=== PATIENT | male | born 1980 | race Caucasian/White ===

== ENCOUNTER 2020-02-02 07:23 | Day surgery (SDC) | payer OTHER ==
--- NOTE | 2020-02-02 07:50 | EDM.PDOC ---
ED HPI GENERAL MEDICAL PROBLEM - General Chief Complaint: Abdominal Pain Stated Complaint: PRESSURE IN CHEST AND STOMACH Time Seen by Provider: 02/02/20 07:43 Source of Information: Reports: Patient History Limitations: Reports: No Limitations - History of Present Illness INITIAL COMMENTS - FREE TEXT/NARRATIVE: This 39-year-old gentleman presents to the emergency room with a chief complaint of epigastric and chest pain after vomiting 10 times yesterday. Patient denies shortness of breath but states that he has epigastric pain radiating through his to his chest. Patient denies any upper GI bleeding any melanotic stools. Patient states he drinks alcohol 3 times a week. And smokes cannabis 3 times a week. Denies a history of heart disease, hypertension or family history of heart disease Duration: Day(s): (2), Getting Worse Location: Reports: Chest, Abdomen, Generalized Quality: Reports: Ache, Burning Severity: Moderate Associated Symptoms: Reports: Chest Pain, Nausea/Vomiting chest pressure Pain Score (Numeric/FACES): 8 - Related Data Allergies Allergy/AdvReac Type Severity Reaction Status Date / Time amoxicillin [Amoxicillin] Allergy Nausea Verified 02/02/20 07:28 Home Meds: Home Meds . [No Known Home Meds] 02/02/20 [History] Past Medical History - Past Health History Medical/Surgical History: Denies Medical/Surgical History - Infectious Disease History Infectious Disease History: Reports: None Social & Family History - Family History Family Medical History: Noncontributory - Tobacco Use Smoking Status *Q: Never Smoker - Recreational Drug Use Recreational Drug Use: Yes Recreational Drug Type: Reports: Marijuana/Hashish Recreational Drug Use Frequency: Weekly ED ROS GENERAL - Review of Systems Review Of Systems: See Below Constitutional: Reports: No Symptoms HEENT: Reports: No Symptoms Respiratory: Reports: No Symptoms Cardiovascular: Reports: Chest Pain Endocrine: Reports: No Symptoms GI/Abdominal: Reports: Abdominal Pain, Nausea, Vomiting : Reports: No Symptoms Musculoskeletal: Reports: No Symptoms Skin: Reports: No Symptoms Neurological: Reports: No Symptoms Psychiatric: Reports: No Symptoms Hematologic/Lymphatic: Reports: No Symptoms Immunologic: Reports: No Symptoms ED EXAM, GI/ABD - Physical Exam Exam: See Below Exam Limited By: No Limitations General Appearance: Alert, Anxious, Moderate Distress Eyes: Bilateral: Normal Appearance Ears: Normal External Exam, Normal Canal, Hearing Grossly Normal, Normal TMs Nose: Normal Inspection, Normal Mucosa, No Blood Throat/Mouth: Normal Inspection, Normal Lips, Normal Teeth, Normal Gums Head: Atraumatic, Normocephalic Neck: Normal Inspection, Supple, Non-Tender, Full Range of Motion Respiratory/Chest: No Respiratory Distress, Lungs Clear, Normal Breath Sounds, No Accessory Muscle Use, Chest Non-Tender Cardiovascular: Normal Peripheral Pulses, Regular Rate, Rhythm, No Edema, No Gallop, No JVD, No Murmur, No Rub GI/Abdominal Exam: Normal Bowel Sounds, Soft, No Distention, No Abnormal Bruit, Tender (Male) Exam: Deferred Rectal (Males) Exam: Deferred Back Exam: Normal Inspection, Full Range of Motion Extremities: Normal Inspection, Normal Range of Motion, Non-Tender, No Pedal Edema, Normal Capillary Refill Neurological: Alert, Oriented, CN II-XII Intact, Normal Cognition, Normal Reflexes, No Motor/Sensory Deficits Psychiatric: Normal Affect, Normal Mood Skin Exam: Warm, Dry, Intact, Normal Color, No Rash Lymphatic: No Adenopathy Course - Vital Signs Text/Narrative:: 39-year-old gentleman presenting to the emergency room with epigastric and chest pain. Patient has a history of alcohol and ingestion and abuse and also history of cannabis abuse for 20 years. An episode of vomiting 10 times yesterday and now has a gastric and chest area With his history I consider multiple double diagnosis. 1. Gastritis secondary to vomiting 2. Alcohol induced vomiting with possibility of withdrawals. Last known ingestion 48 hours ago of alcohol 3. Cannabis induced cyclic vomiting syndrome patient has used cannabis 3 times a week for over 20 years 4. Cardiac chest pain. Angina. Patient has no risk factors for cardiac disease at this time At this point in our work-up patient's labs are pending EKG has been performed as a sinus tachycardia 107 with no acute changes vitals are stable Reevaluation at 10:30 AM Physical exam pain now has moved to the right lower quadrant. CT scan shows possible early appendicitis. I have discussed the case with the surgeon environmental compliance technician Dr. Diaz and he has suggested ultrasound additionally because of the elevated LFTs. Patient has been given IV fluids and antibiotics at this time Flagyl and Cipro. Patient is allergic to penicillins. His pain is controlled at this time with Reevaluation by Dr. Diaz General: The room at 11:24 AM after ultrasound results show appendicitis and patient CT scan shows appendicitis and new evaluation shows appendicitis patient will be admitted to surgery for appendicitis is received antibiotics will add additional pain medicine now Last Recorded V/S: Last Vital Signs Temp 98.8 F 02/02/20 07:29 Pulse 81 02/02/20 11:12 Resp 17 02/02/20 09:45 BP 126/69 02/02/20 11:12 Pulse Ox 99 02/02/20 11:12 - Orders/Labs/Meds Orders: Active Orders 24 hr Category Date Time Status EKG 12 Lead [EKG Documentation Completion] [RC] ROUTINE Care 02/02/20 07:50 Active Abdomen Ltd [US] Stat Exams 02/02/20 10:23 Ordered CORONAVIRUS COVID-19 PCR PHL Stat Lab 02/02/20 11:23 Ordered CULTURE BLOOD [BC] Stat Lab 02/02/20 10:11 Ordered CULTURE BLOOD [BC] Stat Lab 02/02/20 10:11 Ordered Blood Culture x2 Reflex Set [OM.PC] Stat Oth 02/02/20 10:10 Ordered Labs: Laboratory Tests 02/02/20 02/02/20 02/02/20 Range/Units 07:30 07:30 07:30 WBC 20.13 H (4.0-11.0) K/uL RBC 5.28 (4.50-5.90) M/uL Hgb 16.2 (13.0-17.0) g/dL Hct 47.4 (38.0-50.0) % MCV 89.8 (80.0-98.0) fL MCH 30.7 (27.0-32.0) pg MCHC 34.2 (31.0-37.0) g/dL RDW Std Deviation 41.3 (28.0-62.0) fl RDW Coeff of Ary 13 (11.0-15.0) % Plt Count 315 (150-400) K/uL MPV 10.30 (7.40-12.00) fL Neut % (Auto) 82.0 H (48.0-80.0) % Lymph % (Auto) 10.0 L (16.0-40.0) % Gordon % (Auto) 7.9 (0.0-15.0) % Eos % (Auto) 0.0 (0.0-7.0) % Baso % (Auto) 0.1 (0.0-1.5) % Neut # (Auto) 16.5 H (1.4-5.7) K/uL Lymph # (Auto) 2.0 (0.6-2.4) K/uL Gordon # (Auto) 1.6 H (0.0-0.8) K/uL Eos # (Auto) 0.0 (0.0-0.7) K/uL Baso # (Auto) 0.0 (0.0-0.1) K/uL Nucleated RBC % 0.0 /100WBC Nucleated RBCs # 0 K/uL INR 1.00 Sodium 134 L (136-148) mmol/L Potassium 3.7 (3.5-5.1) mmol/L Chloride 96 L (98-107) mmol/L Carbon Dioxide 26.5 (21.0-32.0) mmol/L BUN 11 (7.0-18.0) mg/dL Creatinine 1.1 (0.8-1.3) mg/dL Est Cr Clr Drug Dosing 91.95 mL/min Estimated GFR (MDRD) > 60.0 ml/min Glucose 135 H (74-106) mg/dL Calcium 8.9 (8.5-10.1) mg/dL Magnesium 1.8 (1.8-2.4) mg/dL Total Bilirubin 1.2 H (0.2-1.0) mg/dL AST 64 H (15-37) IU/L ALT 218 H (14-63) IU/L Alkaline Phosphatase 74 (46-116) U/L Troponin I < 0.050 (0.000-0.056) ng/mL Total Protein 8.5 H (6.4-8.2) g/dL Albumin 4.5 (3.4-5.0) g/dL Globulin 4.0 (2.6-4.0) g/dL Albumin/Globulin Ratio 1.1 (0.9-1.6) Lipase 87 (73-393) U/L Urine Color Urine Appearance Urine pH (5.0-8.0) Ur Specific [place] (1.001-1.035) Urine Protein (NEGATIVE) mg/dL Urine Glucose (UA) (NEGATIVE) mg/dL Urine Ketones (NEGATIVE) mg/dL Urine Occult Blood (NEGATIVE) Urine Nitrite (NEGATIVE) Urine Bilirubin (NEGATIVE) Urine Urobilinogen (<2.0) EU/dL Ur Leukocyte Esterase (NEGATIVE) Urine Opiates Screen (NEGATIVE) Ur Oxycodone Screen (NEGATIVE) Urine Methadone Screen (NEGATIVE) Ur Barbiturates Screen (NEGATIVE) Ur Phencyclidine Scrn (NEGATIVE) Ur Amphetamine Screen (NEGATIVE) U Methamphetamines Scrn (NEGATIVE) U Benzodiazepines Scrn (NEGATIVE) U Cocaine Metab Screen (NEGATIVE) U Marijuana (THC) Screen (NEGATIVE) 02/02/20 02/02/20 Range/Units 08:32 08:32 WBC (4.0-11.0) K/uL RBC (4.50-5.90) M/uL Hgb (13.0-17.0) g/dL Hct (38.0-50.0) % MCV (80.0-98.0) fL MCH (27.0-32.0) pg MCHC (31.0-37.0) g/dL RDW Std Deviation (28.0-62.0) fl RDW Coeff of Ary (11.0-15.0) % Plt Count (150-400) K/uL MPV (7.40-12.00) fL Neut % (Auto) (48.0-80.0) % Lymph % (Auto) (16.0-40.0) % Gordon % (Auto) (0.0-15.0) % Eos % (Auto) (0.0-7.0) % Baso % (Auto) (0.0-1.5) % Neut # (Auto) (1.4-5.7) K/uL Lymph # (Auto) (0.6-2.4) K/uL Gordon # (Auto) (0.0-0.8) K/uL Eos # (Auto) (0.0-0.7) K/uL Baso # (Auto) (0.0-0.1) K/uL Nucleated RBC % /100WBC Nucleated RBCs # K/uL INR Sodium (136-148) mmol/L Potassium (3.5-5.1) mmol/L Chloride (98-107) mmol/L Carbon Dioxide (21.0-32.0) mmol/L BUN (7.0-18.0) mg/dL Creatinine (0.8-1.3) mg/dL Est Cr Clr Drug Dosing mL/min Estimated GFR (MDRD) ml/min Glucose (74-106) mg/dL Calcium (8.5-10.1) mg/dL Magnesium (1.8-2.4) mg/dL Total Bilirubin (0.2-1.0) mg/dL AST (15-37) IU/L ALT (14-63) IU/L Alkaline Phosphatase (46-116) U/L Troponin I (0.000-0.056) ng/mL Total Protein (6.4-8.2) g/dL Albumin (3.4-5.0) g/dL Globulin (2.6-4.0) g/dL Albumin/Globulin Ratio (0.9-1.6) Lipase (73-393) U/L Urine Color YELLOW Urine Appearance CLEAR Urine pH 6.5 (5.0-8.0) Ur Specific [place] <= 1.005 (1.001-1.035) Urine Protein NEGATIVE (NEGATIVE) mg/dL Urine Glucose (UA) NEGATIVE (NEGATIVE) mg/dL Urine Ketones NEGATIVE (NEGATIVE) mg/dL Urine Occult Blood NEGATIVE (NEGATIVE) Urine Nitrite NEGATIVE (NEGATIVE) Urine Bilirubin NEGATIVE (NEGATIVE) Urine Urobilinogen 0.2 (<2.0) EU/dL Ur Leukocyte Esterase NEGATIVE (NEGATIVE) Urine Opiates Screen NEGATIVE (NEGATIVE) Ur Oxycodone Screen NEGATIVE (NEGATIVE) Urine Methadone Screen NEGATIVE (NEGATIVE) Ur Barbiturates Screen NEGATIVE (NEGATIVE) Ur Phencyclidine Scrn NEGATIVE (NEGATIVE) Ur Amphetamine Screen NEGATIVE (NEGATIVE) U Methamphetamines Scrn NEGATIVE (NEGATIVE) U Benzodiazepines Scrn NEGATIVE (NEGATIVE) U Cocaine Metab Screen NEGATIVE (NEGATIVE) U Marijuana (THC) Screen NEGATIVE (NEGATIVE) Meds: Medications Discontinued Medications Generic Name Dose Route Start Last Admin Trade Name Freq PRN Reason Stop Dose Admin Al Hydroxide/Mg Hydroxide 15 0 ml 02/02/20 08:32 02/02/20 08:39 ml/ Metoclopramide HCl 5 mg/ PO 02/02/20 08:33 1 each Lidocaine HCl 5 ml ONETIME ONE Administration Sodium Chloride 1,000 mls @ 1,000 mls/hr 02/02/20 07:52 02/02/20 08:00 Normal Saline IV 02/02/20 08:51 1,000 mls/hr .Bolus ONE Administration Pantoprazole Sodium 40 mg/ 10 mls @ 300 mls/hr 02/02/20 07:53 02/02/20 08:02 Sodium Chloride IV 02/02/20 07:54 300 mls/hr NOW ONE Administration Sodium Chloride 1,000 mls @ 999 mls/hr 02/02/20 08:32 02/02/20 08:38 Normal Saline IV 02/02/20 09:32 999 mls/hr .Bolus ONE Administration Metronidazole 500 mg/ Premix 100 mls @ 100 mls/hr 02/02/20 10:06 IV 02/02/20 11:05 ONETIME ONE Ciprofloxacin/Dextrose 400 mg/ 200 mls @ 200 mls/hr 02/02/20 10:09 02/02/20 11:10 Premix IV 02/02/20 11:08 200 mls/hr NOW STA Administration Lorazepam 1 mg 02/02/20 07:52 02/02/20 08:00 Ativan IVPUSH 02/02/20 07:53 1 mg ONETIME ONE Administration Ondansetron HCl 8 mg 02/02/20 07:52 02/02/20 08:00 Zofran IVPUSH 02/02/20 07:53 8 mg ONETIME ONE Administration Departure - Departure Time of Disposition: 11:31 Disposition: Still A Patient 30 Condition: Good Clinical Impression: Appendicitis Qualifiers: Appendicitis type: acute appendicitis Acute appendicitis type: with localized peritonitis Appendicitis gangrene presence: without gangrene Appendicitis perforation presence: without perforation Appendicitis abscess presence: unspecified whether abscess present Qualified Code(s): K35.30 - Acute appendicitis with localized peritonitis, without perforation or gangrene - Discharge Information Referrals: PCP,None [Primary Care Provider] - Forms: ED Department Discharge Sepsis Event Note - Evaluation Sepsis Screening Result: No Definite Risk - Focused Exam Vital Signs: Vital Signs Temp Pulse Resp BP Pulse Ox 02/02/20 11:12 81 126/69 99 02/02/20 09:45 78 17 144/75 H 97 02/02/20 08:42 82 18 160/102 H 97 02/02/20 08:06 84 18 158/93 H 99 02/02/20 07:29 98.8 F 120 H 18 159/89 H 97 Date Exam was Performed: 02/02/20 Time Exam was Performed: 11:23 - My Orders Last 24 Hours: My Active Orders 02/02/20 10:10 Blood Culture x2 Reflex Set [OM.PC] Stat 02/02/20 10:11 CULTURE BLOOD [BC] Stat CULTURE BLOOD [BC] Stat 02/02/20 10:23 Abdomen Ltd [US] Stat 02/02/20 11:23 CORONAVIRUS COVID-19 PCR PHL Stat - Assessment/Plan Last 24 Hours: My Active Orders 02/02/20 10:10 Blood Culture x2 Reflex Set [OM.PC] Stat 02/02/20 10:11 CULTURE BLOOD [BC] Stat CULTURE BLOOD [BC] Stat 02/02/20 10:23 Abdomen Ltd [US] Stat 02/02/20 11:23 CORONAVIRUS COVID-19 PCR PHL Stat
[2020-02-02] MEDS ORDERED: Sodium Chloride 0.9% 1,000 ML IV ONE ×2 (07:52→08:32)
[2020-02-02] MEDS ORDERED: Ondansetron 4 MG/2 ML SDV IVPUSH ONE ×2 (07:52→11:25)
[2020-02-02] MEDS ORDERED: LORazepam 2 MG/ML SDV IVPUSH ONE (07:52)
[2020-02-02] MEDS ORDERED: Pantoprazole 40 MG in Sodium Chloride 0.9% 10 ML IV ONE (07:53)
--- NOTE | 2020-02-02 08:12 | CR ---
Chest: Portable view of the chest was obtained. Comparison: No prior chest imaging. Heart size and mediastinum are normal. Lungs are clear with no acute parenchymal change. Bony structures are grossly intact. Impression: 1. Nothing acute is seen on portable chest x-ray. Diagnostic code #1 This report was dictated in MDT
[2020-02-02 08:24] LABS: BLOOD UREA NITROGEN,BUN 11 mg/dL (7.0-18.0); CARBON DIOXIDE,CO2 26.5 mmol/L (21.0-32.0); CHLORIDE,CL 96 mmol/L (98-107); GLUCOSE RANDOM 135 mg/dL (74-106); LIPASE 87 U/L (73-393); POTASSIUM,K 3.7 mmol/L (3.5-5.1); SODIUM,NA 134 mmol/L (136-148)
[2020-02-02] MEDS ORDERED: Alum Hydrox/Mag Hydrox/Simeth 15 ML, Metoclopramide 5 MG, Lidocaine 2% 5 ML PO ONE ×3 (08:32)
--- NOTE | 2020-02-02 09:59 | CT ---
CT abdomen and pelvis Technique: Multiple axial sections were obtained from above the dome of the diaphragm inferiorly through the pubic symphysis. Intravenous contrast was utilized. No oral contrast has been given. Comparison: No prior abdominal imaging is available. Findings: Visualized lung bases show nothing acute. Liver shows mild fatty infiltration. No focal abnormality is appreciated within the liver. Spleen appears within normal limits. Adrenal glands show no nodule. Pancreas is within normal limits. Gallbladder contains no calcified gallstones. Kidneys show symmetric contrast enhancement without hydronephrosis or mass. Lower pole renal calculus is noted within the right kidney measuring 6 mm. Multiple smaller nonobstructing calculi are seen within the left kidney. No ureteral calculi are seen. Aorta shows no aneurysm. No retroperitoneal adenopathy or mesenteric abnormalities are seen. No pelvic mass or adenopathy is appreciated. Appendix is seen and shows multiple appendicoliths. Appendix is slightly prominent in size measuring 9.4 mm. Very minimal inflammatory change is seen around the appendix. Findings suggest the possibility of very early appendicitis. No additional inflammatory change is seen. No free fluid is seen. No pelvic mass or adenopathy is appreciated. Bone window settings were reviewed. Disc space narrowing seen at L5-S1 with endplate spurring and vacuum phenomena. No acute osseous finding is seen. Impression: 1. Appendix is slightly prominent in size with multiple appendicoliths. Minimal surrounding inflammatory change is seen. Findings raise the possibility of early appendicitis. Please correlate if patient's clinical symptoms match. 2. Nonobstructing calculi within both kidneys. 3. Fatty infiltration within the liver. 4. Other findings believed to be nonacute and incidental as noted above. Diagnostic code #5 This report was dictated in MDT
[2020-02-02] MEDS ORDERED: metroNIDAZOLE/Normal Saline 500 MG in Premix Bag 1 BAG IV ONE (10:06)
[2020-02-02] MEDS ORDERED: Ciprofloxacin in D5W 400 MG in Premix Bag 1 BAG IV STA ×2 (10:09)
[2020-02-02] MEDS ORDERED: Morphine 10 MG/ML Syringe IVPUSH ONE (11:24)
--- NOTE | 2020-02-02 11:49 | PCM.SN.2 ---
- Free Text/Narrative Note: pt seen, chart reviewed; h/p dictated, acute appendicitis, proceed w surgery; rb dw pt re bleeding/infection/damage to nearby organs; pt concurs and proceed; [id number]
--- NOTE | 2020-02-02 11:50 | US ---
Limited abdominal ultrasound: Multiple real-time images of the upper right abdomen were obtained. Comparison: Prior CT abdomen and pelvis study performed earlier on the same day. Findings: Liver is echogenic compatible with fatty infiltration. Aorta shows no aneurysm. Right kidney shows 3 small hyperechoic areas possibly due to poorly shadowing renal calculi. No hydronephrosis is seen. Inferior vena cava is normal. Gallbladder contains no shadowing gallstones. No gallbladder wall thickening or biliary duct dilatation is seen. Pancreas is incompletely seen. Visualized portions of the pancreas are within normal limits. Thick tubular structure is seen within the right lower quadrant possibly due to patient's appendix. Technologist states patient has pain when scanning over this area. Impression: 1. Findings continue to be suspicious for early appendicitis. 2. 3 possible poorly shadowing renal calculi within the right kidney. 3. Fatty infiltration within the liver. Diagnostic code #3 This report was dictated in MDT
--- NOTE | 2020-02-02 11:54 | PCM.PREANE ---
Preanesthetic Assessment - Anesthesia/Transfusion/Family Hx Anesthesia History: Prior Anesthesia Without Reaction Family History of Anesthesia Reaction: No Transfusion History: Unknown Intubation History: Unknown - Review of Systems General: No Symptoms Pulmonary: No Symptoms Cardiovascular: No Symptoms Gastrointestinal: Abdominal Pain Neurological: No Symptoms Other: Reports: None - Physical Assessment Vital Signs: Last Vital Signs Temp 37.1 C 02/02/20 07:29 Pulse 81 02/02/20 11:12 Resp 17 02/02/20 09:45 BP 126/69 02/02/20 11:12 Pulse Ox 99 02/02/20 11:12 Height: 5 ft 9 in Weight: 77.111 kg ASA Class: 2E Mental Status: Alert & Oriented x3 Airway Class: Mallampati = 2 Dentition: Reports: Normal Dentition Thyro-Mental Finger Breadths: 3 Mouth Opening Finger Breadths: 3 ROM/Head Extension: Full Lungs: Clear to Auscultation, Normal Respiratory Effort Cardiovascular: Regular Rate, Regular Rhythm - Lab Values: Laboratory Last Values WBC 20.13 K/uL (4.0-11.0) H 02/02/20 07:30 RBC 5.28 M/uL (4.50-5.90) 02/02/20 07:30 Hgb 16.2 g/dL (13.0-17.0) 02/02/20 07:30 Hct 47.4 % (38.0-50.0) 02/02/20 07:30 MCV 89.8 fL (80.0-98.0) 02/02/20 07:30 MCH 30.7 pg (27.0-32.0) 02/02/20 07:30 MCHC 34.2 g/dL (31.0-37.0) 02/02/20 07:30 RDW Std Deviation 41.3 fl (28.0-62.0) 02/02/20 07:30 RDW Coeff of Ary 13 % (11.0-15.0) 02/02/20 07:30 Plt Count 315 K/uL (150-400) 02/02/20 07:30 MPV 10.30 fL (7.40-12.00) 02/02/20 07:30 Neut % (Auto) 82.0 % (48.0-80.0) H 02/02/20 07:30 Lymph % (Auto) 10.0 % (16.0-40.0) L 02/02/20 07:30 [place] % (Auto) 7.9 % (0.0-15.0) 02/02/20 07:30 Eos % (Auto) 0.0 % (0.0-7.0) 02/02/20 07:30 Baso % (Auto) 0.1 % (0.0-1.5) 02/02/20 07:30 Neut # (Auto) 16.5 K/uL (1.4-5.7) H 02/02/20 07:30 Lymph # (Auto) 2.0 K/uL (0.6-2.4) 02/02/20 07:30 [place] # (Auto) 1.6 K/uL (0.0-0.8) H 02/02/20 07:30 Eos # (Auto) 0.0 K/uL (0.0-0.7) 02/02/20 07:30 Baso # (Auto) 0.0 K/uL (0.0-0.1) 02/02/20 07:30 Nucleated RBC % 0.0 /100WBC 02/02/20 07:30 Nucleated RBCs # 0 K/uL 02/02/20 07:30 INR 1.00 02/02/20 07:30 Sodium 134 mmol/L (136-148) L 02/02/20 07:30 Potassium 3.7 mmol/L (3.5-5.1) 02/02/20 07:30 Chloride 96 mmol/L (98-107) L 02/02/20 07:30 Carbon Dioxide 26.5 mmol/L (21.0-32.0) 02/02/20 07:30 BUN 11 mg/dL (7.0-18.0) 02/02/20 07:30 Creatinine 1.1 mg/dL (0.8-1.3) 02/02/20 07:30 Est Cr Clr Drug Dosing 91.95 mL/min 02/02/20 07:30 Estimated GFR (MDRD) > 60.0 ml/min 02/02/20 07:30 Glucose 135 mg/dL (74-106) H 02/02/20 07:30 Calcium 8.9 mg/dL (8.5-10.1) 02/02/20 07:30 Magnesium 1.8 mg/dL (1.8-2.4) 02/02/20 07:30 Total Bilirubin 1.2 mg/dL (0.2-1.0) H 02/02/20 07:30 AST 64 IU/L (15-37) H 02/02/20 07:30 ALT 218 IU/L (14-63) H 02/02/20 07:30 Alkaline Phosphatase 74 U/L (46-116) 02/02/20 07:30 Troponin I < 0.050 ng/mL (0.000-0.056) 02/02/20 07:30 Total Protein 8.5 g/dL (6.4-8.2) H 02/02/20 07:30 Albumin 4.5 g/dL (3.4-5.0) 02/02/20 07:30 Globulin 4.0 g/dL (2.6-4.0) 02/02/20 07:30 Albumin/Globulin Ratio 1.1 (0.9-1.6) 02/02/20 07:30 Lipase 87 U/L (73-393) 02/02/20 07:30 Urine Color YELLOW 02/02/20 08:32 Urine Appearance CLEAR 02/02/20 08:32 Urine pH 6.5 (5.0-8.0) 02/02/20 08:32 Ur Specific [place] <= 1.005 (1.001-1.035) 02/02/20 08:32 Urine Protein NEGATIVE mg/dL (NEGATIVE) 02/02/20 08:32 Urine Glucose (UA) NEGATIVE mg/dL (NEGATIVE) 02/02/20 08:32 Urine Ketones NEGATIVE mg/dL (NEGATIVE) 02/02/20 08:32 Urine Occult Blood NEGATIVE (NEGATIVE) 02/02/20 08:32 Urine Nitrite NEGATIVE (NEGATIVE) 02/02/20 08:32 Urine Bilirubin NEGATIVE (NEGATIVE) 02/02/20 08:32 Urine Urobilinogen 0.2 EU/dL (<2.0) 02/02/20 08:32 Ur Leukocyte Esterase NEGATIVE (NEGATIVE) 02/02/20 08:32 Urine Opiates Screen NEGATIVE (NEGATIVE) 02/02/20 08:32 Ur Oxycodone Screen NEGATIVE (NEGATIVE) 02/02/20 08:32 Urine Methadone Screen NEGATIVE (NEGATIVE) 02/02/20 08:32 Ur Barbiturates Screen NEGATIVE (NEGATIVE) 02/02/20 08:32 Ur Phencyclidine Scrn NEGATIVE (NEGATIVE) 02/02/20 08:32 Ur Amphetamine Screen NEGATIVE (NEGATIVE) 02/02/20 08:32 U Methamphetamines Scrn NEGATIVE (NEGATIVE) 02/02/20 08:32 U Benzodiazepines Scrn NEGATIVE (NEGATIVE) 02/02/20 08:32 U Cocaine Metab Screen NEGATIVE (NEGATIVE) 02/02/20 08:32 U Marijuana (THC) Screen NEGATIVE (NEGATIVE) 02/02/20 08:32 - Allergies Allergies/Adverse Reactions: Allergies Allergy/AdvReac Type Severity Reaction Status Date / Time amoxicillin [Amoxicillin] Allergy Nausea Verified 02/02/20 07:28 - Blood Blood Available: No - Anesthesia Plan Pre-Op Medication Ordered: None - Acknowledgements Anesthesia Type Planned: General Anesthesia Pt an Appropriate Candidate for the Planned Anesthesia: Yes Alternatives and Risks of Anesthesia Discussed w Pt/Guardian: Yes Pt/Guardian Understands and Agrees with Anesthesia Plan: Yes PreAnesthesia Questionnaire - Past Health History Medical/Surgical History: Denies Medical/Surgical History Gastrointestinal History: Reports: Other (See Below) (acute appendicitis at present, 'bad looking liver" on CT) Genitourinary History: Reports: Renal Calculus - Infectious Disease History Infectious Disease History: Reports: None - Past Surgical History HEENT Surgical History: Reports: Other (See Below) (ORIF mandible fx. 15 years ago, still has hardware in) Male Surgical History: Reports: Renal Calculus - SUBSTANCE USE Smoking Status *Q: Never Smoker Days Per Week of Alcohol Use: 3 Recreational Drug Use History: Yes Recreational Drug Type: Reports: Marijuana/Hashish - HOME MEDS Home Medications: Home Meds . [No Known Home Meds] 02/02/20 [History] - CURRENT (IN HOUSE) MEDS Current Meds: Current Medications Discontinued Medications Al Hydroxide/Mg Hydroxide 15 ml/ Metoclopramide HCl 5 mg/Lidocaine HCl 5 ml 0 ml PO ONETIME ONE Stop: 02/02/20 08:33 Last Admin: 02/02/20 08:39 Dose: 1 each Sodium Chloride (Normal Saline) 1,000 mls @ 1,000 mls/hr IV .Bolus ONE Stop: 02/02/20 08:51 Last Admin: 02/02/20 08:00 Dose: 1,000 mls/hr Pantoprazole Sodium 40 mg/ (Sodium Chloride) 10 mls @ 300 mls/hr IV NOW ONE Stop: 02/02/20 07:54 Last Admin: 02/02/20 08:02 Dose: 300 mls/hr Sodium Chloride (Normal Saline) 1,000 mls @ 999 mls/hr IV .Bolus ONE Stop: 02/02/20 09:32 Last Admin: 02/02/20 08:38 Dose: 999 mls/hr Metronidazole 500 mg/ Premix 100 mls @ 100 mls/hr IV ONETIME ONE Stop: 02/02/20 11:05 Last Admin: 02/02/20 11:44 Dose: 100 mls/hr Ciprofloxacin/Dextrose 400 mg/ (Premix) 200 mls @ 200 mls/hr IV NOW STA Stop: 02/02/20 11:08 Last Admin: 02/02/20 11:10 Dose: 200 mls/hr Lorazepam (Ativan) 1 mg IVPUSH ONETIME ONE Stop: 02/02/20 07:53 Last Admin: 02/02/20 08:00 Dose: 1 mg Morphine Sulfate (Morphine) 5 mg IVPUSH ONETIME ONE Stop: 02/02/20 11:25 Last Admin: 02/02/20 11:44 Dose: 5 mg Ondansetron HCl (Zofran) 8 mg IVPUSH ONETIME ONE Stop: 02/02/20 07:53 Last Admin: 02/02/20 08:00 Dose: 8 mg Ondansetron HCl (Zofran) 4 mg IVPUSH ONETIME ONE Stop: 02/02/20 11:26 Last Admin: 02/02/20 11:44 Dose: 4 mg
[2020-02-02] MEDS ORDERED: Lactated Ringers 1,000 ML IV SCH (12:00)
[2020-02-02] MEDS ORDERED: Sodium Chloride 0.9% 1,000 ML IV SCH (12:00)
[2020-02-02] MEDS ORDERED: Bupivacaine 0.25%/EPINEPHrine 1:200,000 10 ML SDV ONE (12:04)
[2020-02-02] MEDS ORDERED: Lidocaine 2% 5 ML SDV ONE (12:06)
[2020-02-02] MEDS ORDERED: Ondansetron 4 MG/2 ML SDV ONE (12:06)
[2020-02-02] MEDS ORDERED: Midazolam 1 MG/ML 2 ML SDV ONE (12:07)
[2020-02-02] MEDS ORDERED: fentaNYL 250 MCG/5 ML SDV ONE (12:07)
[2020-02-02] MEDS ORDERED: Propofol 200 MG/20 ML SDV ONE (12:07)
[2020-02-02] MEDS ORDERED: fentaNYL 100 MCG/2 ML SDV IVPUSH PRN (12:55)
[2020-02-02] MEDS ORDERED: Naloxone 0.4 MG/ML Syringe IVPUSH PRN (12:55)
[2020-02-02] MEDS ORDERED: 50% Dextrose in Water 50 ML Syringe IVPUSH PRN (12:55)
[2020-02-02] MEDS ORDERED: EPINEPHrine 1:10,000 1 MG/10 ML Syringe IVPUSH PRN (12:55)
[2020-02-02] MEDS ORDERED: Atropine 0.1 MG/ML 10 ML Syringe IVPUSH PRN ×2 (12:55)
[2020-02-02] MEDS ORDERED: Albuterol 0.083% 2.5 MG/3 ML Neb Soln NEB PRN (12:55)
[2020-02-02] MEDS ORDERED: Glycopyrrolate 0.2 MG/ML SDV ONE (13:21)
[2020-02-02] MEDS ORDERED: Ondansetron 4 MG/2 ML SDV IVPUSH PRN (14:13)
[2020-02-02] MEDS ORDERED: Iopamidol 755 Mg/ML 100 ML Bottle IVPUSH STA (14:33)
--- NOTE | 2020-02-02 14:43 | PCM.POSTAN ---
POST ANESTHESIA ASSESSMENT - MENTAL STATUS Mental Status: Alert, Oriented - VITAL SIGNS Vital Signs: Last Vital Signs Temp 36.3 C 02/02/20 13:33 Pulse 107 H 02/02/20 13:47 Resp 14 02/02/20 13:47 BP 139/75 02/02/20 13:47 Pulse Ox 98 02/02/20 13:47 - RESPIRATORY Respiratory Status: Respiratory Rate WNL, Airway Patent, O2 Saturation Stable - CARDIOVASCULAR CV Status: Pulse Rate WNL, Blood Pressure Stable - GASTROINTESTINAL GI Status: No Symptoms - PAIN Pain Score: 0 - POST OP HYDRATION Hydration Status: Adequate & Stable - OBSERVATIONS Free Text/Narrative:: No anesthesia problems
[2020-02-02] MEDS: Lactated Ringers 1,000 ML IV SCH ×2 (15:06→18:43)
--- NOTE | 2020-02-02 15:38 | PCM.OPNOTE ---
- General Post-Op/Procedure Note Date of Surgery/Procedure: 02/02/20 Operative Procedure(s): lap appendectomy Findings: appendix was indurated, hyperemic, hardened, dilated; gross perf not observed; [id number] Pre Op Diagnosis: acute appendicitis Post-Op Diagnosis: same Anesthesia Technique: General ET Tube Primary Surgeon: Eddie Diaz Pathology: sent Complications: None Condition: Stable Free Text/Narrative:: Intake & Output 02/02/20 02/02/20 02/02/20 06:59 14:59 22:59 Output Total 175 Balance -175
--- NOTE | 2020-02-02 15:39 | CONS ---
DATE OF CONSULTATION: 02/02/2020 DATE OF : 1980 PRIMARY CARE PHYSICIAN: None PCP REASON FOR CONSULTATION: This is a consult from Dr. Lambert. Consulting question is acute appendicitis. HISTORY OF PRESENT ILLNESS: The patient is a 39-year-old gentleman complaining over 48-hour history of acute onset of diffuse abdominal pain, started periumbilical, subsequently migrated to right lower quadrant. Seen in emergency room. White count was 20. CT shows acute appendicitis. Surgery was then consulted. PAST MEDICAL HISTORY: Significant for no diabetes, OH, CVA, hypertension. SOCIAL HISTORY: The patient on marijuana and three times of drinking every week. No tobacco. ALLERGIES: Please refer to nursing note for details. MEDICATION: Please refer to nursing note for details. FAMILY HISTORY: No malignant hyperthermia. PHYSICAL EXAMINATION: GENERAL: A very pleasant gentleman, resting on stretcher, and in no acute distress. HEENT: Normocephalic and atraumatic. Sclerae anicteric. LUNGS: Clear to auscultation. HEART: Regular rate and rhythm. ABDOMEN: Soft, nondistended. No pulsating tender midline abdominal structure. Diffuse abdominal tenderness, more on the McBurney point. No rebound tenderness. SKIN: Intact. No hernia. LABORATORY DATA: White count is 20, H and H are 16 and 47. BUN is 11, creatinine is 1.1. The patient also has a TBili of 1.2, AST and ALT elevated at 64 and 218. Lipase 87. CAT scan, acute appendicitis. IMPRESSION: Acute appendicitis. Agree with imaging study and history and physical. The patient will benefit from a timely surgical intervention of laparoscopic, possible open, appendectomy. Risks and benefits discussed with the patient including, but not limited to, bleeding, infection, and damage to nearby organ. We also talked about postop cares. The patient concurred to proceed with surgery. As always thank you for the kind referral. BEN / ASHLEY /[id number]
--- NOTE | 2020-02-02 16:31 | OR ---
SURGEON: Eddie Diaz MD DATE OF PROCEDURE: 02/02/2020 PREOPERATIVE DIAGNOSIS: Acute appendicitis. POSTOPERATIVE DIAGNOSIS: Acute appendicitis. PROCEDURE PERFORMED: Laparoscopic appendectomy. PRIMARY SURGEON: Eddie Diaz MD COMPLICATIONS: None. FINDINGS: Appendix was indurated, hyperemic, hardened, dilated, and gross perforation was not observed. DESCRIPTION OF PROCEDURE: The patient was taken to the operating room and placed in the supine position. Following induction of general endotracheal anesthesia, the patient's abdomen was prepped and draped in the sterile fashion. A time-out has been called. The patient was identified. The procedure was identified. The antibiotics were identified. The procedure then proceeded. The abdomen was prepped and draped in a standard fashion. After assessment of appropriate landmarks, a 12 millimeter trocar was inserted supraumbilically using Optiview and pneumoperitoneum was then achieved. This was followed with placement of 5 millimeter port in the right upper quadrant and another 5 millimeter port infraumbilically. The camera was inserted supraumbilical site and two laparoscopic [place] retractors were then inserted through the other two sites. Following the cecum, the appendix was located. The appendix was then lifted up, and using a GI stapler the appendix was amputated at the base. And using the GI stapler, the mesoappendix was then amputated. The appendix was retrieved by an endoscopic bag and sent for pathologist. This was then followed by re-insertion of the camera to examine the staple line, and hemostasis. The trocars were then removed. The umbilical site was closed with 2-0 Vicryl deep stitch and 4 -0 Vicryl and Dermabond; the other 2 5 mm port sites were closed with 4-0 Vicryl and Dermabond. The patient was then awakened, extubated, and transferred to the recovery room in hemodynamically stable condition. Prior to closing, sponge count and instrument count was correct. Intraoperative findings as dictated above. Postop, wound was closed with skin staple. The patient tolerated the procedure well. There were no intraoperative complications. Dr. Diaz was present throughout the whole procedure. As always, thank you for the kind referral. BEN / ASHLEY /[id number]
[2020-02-02] MEDS: Acetaminophen/oxyCODONE 325-5 MG Tab PO PRN (18:50)
[2020-02-02] MEDS: Acetaminophen 325 MG Tab PO PRN (22:48)
[2020-02-03] MEDS: Lactated Ringers 1,000 ML IV SCH (02:47)
[2020-02-03] MEDS: Acetaminophen/oxyCODONE 325-5 MG Tab PO PRN (02:47)
[2020-02-03] MEDS: Acetaminophen 325 MG Tab PO PRN (07:17)
--- NOTE | 2020-02-03 08:36 | PCM48HPAN ---
Post Anesthesia Note - EVALUATION WITHIN 48HRS OF ANESTHETIC Vital Signs in Normal Range: Yes Patient Participated in Evaluation: Yes Respiratory Function Stable: Yes Airway Patent: Yes Cardiovascular Function Stable: Yes Hydration Status Stable: Yes Pain Control Satisfactory: Yes Nausea and Vomiting Control Satisfactory: Yes Mental Status Recovered: Yes Vital Signs: Last Vital Signs Temp 36.7 C 02/03/20 04:00 Pulse 79 02/03/20 04:00 Resp 17 02/03/20 04:00 BP 119/62 02/03/20 04:00 Pulse Ox 95 02/03/20 04:00
== END 2020-02-03 10:20 | disposition home or self-care (01) ==
LOC: MW.ED 07:23 → MW.SDS 11:29 → MW.MS 13:36 → MW.SDS 02-03 10:20
PROVIDERS: ATTEND Surgery
DX: K35.30 Acute appendicitis with localized peritonitis, without perforation or gangrene (principal); R07.89 Other chest pain; K29.70 Gastritis, unspecified, without bleeding; R00.0 Tachycardia, unspecified; R11.15 Cyclical vomiting syndrome unrelated to migraine; F10.988 Alcohol use, unspecified with other alcohol-induced disorder; F12.988 Cannabis use, unspecified with other cannabis-induced disorder; Z11.59 Encounter for screening for other viral diseases; Z88.0 Allergy status to penicillin
CPT/HCPCS: 44970; 71045; 74177; 76705; 80053; 80305; 81003; 83690; 83735; 84484; 85025; 85610; 87040; 87635; 88304; 93005; 96361; 96365; 96375; 99285; A9270; C9113; J0744; J2001; J2060; J2250; J2270; J2405; J2704; J3010; J3490; J7030; J7050; J7120; Q9967; 00840; 99284; U0002